=== PATIENT | male | born 1990 | race Caucasian/White ===

== ENCOUNTER 2017-12-15 12:29 | Emergency (ER) | payer MEDICAID, OTHER ==
[2017-12-15 12:48] VITALS: BMI 20.3
[2017-12-15 12:49] VITALS: TEMP 98.7
[2017-12-15] MEDS ORDERED: Naproxen 550 mg Tab PO STA (13:26)
--- NOTE | 2017-12-15 13:30 | C.PDOC ---
History Of Present Illness 27 year old male presents to the ED complaining of lump to the anterior right side of his neck. Patient states the lump sometimes is bigger than other days. Denies any pain. He reports he was treated for a tooth infection a year ago in [place] and since then the lump has been there. Patient complains of headache but denies any vision changes, dizziness, or any trauma/injuries. Time Seen by Provider: 12/15/17 12:55 Chief Complaint (Nursing): Headache History Per: Patient History/Exam Limitations: no limitations Onset/Duration Of Symptoms: Days Current Symptoms Are (Timing): Better Past Medical History Reviewed: Historical Data, Nursing Documentation, Vital Signs Vital Signs: Last Vital Signs Temp 98.7 F 12/15/17 12:48 Pulse 97 H 12/15/17 12:48 Resp 18 12/15/17 12:48 BP 121/81 12/15/17 12:48 Pulse Ox 100 12/15/17 12:48 - Medical History PMH: No Chronic Diseases Surgical History: No Surg Hx Family History: States: No Known Family Hx - Social History Hx Alcohol Use: Yes Hx Substance Use: Yes - Immunization History Hx Tetanus Toxoid Vaccination: No Hx Influenza Vaccination: No Hx Pneumococcal Vaccination: No Review Of Systems Except As Marked, All Systems Reviewed And Found Negative. Constitutional: Negative for: Fever Gastrointestinal: Negative for: Nausea, Vomiting, Diarrhea Physical Exam - Physical Exam Appears: Non-toxic Skin: Warm, Dry Head: Normacephalic Eye(s): bilateral: Normal Inspection Ear(s): Bilateral: Normal Nose: Normal Oral Mucosa: Moist Neck: Normal ROM Lymphatic: Adenopathy ((+) freely movable lymph node to the anterior right neck ) Extremity: Normal ROM Extremity: Bilateral: Atraumatic Neurological/Psych: Oriented x3, Normal Speech Gait: Steady ED Course And Treatment O2 Sat by Pulse Oximetry: 100 (RA) Pulse Ox Interpretation: Normal Disposition - Disposition Forms: [employer] ([place] Islander) - 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 - Scribe Statement The provider has reviewed the documentation as recorded by the Scribe Chhaya Soto All medical record entries made by the Scribe were at my direction and personally dictated by me. I have reviewed the chart and agree that the record accurately reflects my personal performance of the history, physical exam, medical decision making, and the department course for this patient. I have also personally directed, reviewed, and agree with the discharge instructions and disposition.
[2017-12-15] MEDS ORDERED: Naproxen 550 mg Tab PO ONE (13:36)
--- NOTE | 2017-12-15 13:43 | C.PDOC ---
Addendum entered and electronically signed by Abigail Mancini PA 12/15/17 21:29: Addendum Addendum: Patient with poor dentition and cracked teeth, (+) caries. May have trace dental infection and will treat with antibiotics. Original Note: History Of Present Illness 27 year old male presents to the ED complaining of lump to the anterior right side of his neck. Patient states the lump sometimes is bigger than other days. Denies any pain. He reports he was treated for a tooth infection a year ago in [place] and since then the lump has been there. Patient complains of headache but denies any vision changes, dizziness, or any trauma/injuries. Time Seen by Provider: 12/15/17 12:55 Chief Complaint (Nursing): Headache History Per: Patient History/Exam Limitations: no limitations Onset/Duration Of Symptoms: Days Current Symptoms Are (Timing): Gone Past Medical History Vital Signs: Last Vital Signs Temp 98.7 F 12/15/17 12:48 Pulse 97 H 12/15/17 12:48 Resp 18 12/15/17 12:48 BP 121/81 12/15/17 12:48 Pulse Ox 100 12/15/17 13:31 - Medical History PMH: No Chronic Diseases Surgical History: No Surg Hx Family History: States: No Known Family Hx - Social History Hx Alcohol Use: Yes Hx Substance Use: Yes - Immunization History Hx Tetanus Toxoid Vaccination: No Hx Influenza Vaccination: No Hx Pneumococcal Vaccination: No Review Of Systems Eyes: Negative for: Vision Change Gastrointestinal: Negative for: Nausea, Vomiting, Diarrhea Neurological: Positive for: Headache. Negative for: Dizziness Physical Exam - Physical Exam Appears: Non-toxic Skin: Warm, Dry Head: Normacephalic Eye(s): bilateral: Normal Inspection Ear(s): Bilateral: Normal Nose: Normal Oral Mucosa: Moist Neck: Normal ROM Lymphatic: Adenopathy ((+) freely movable lymph node to the anterior right neck ) Chest: Symmetrical Extremity: Normal ROM Extremity: Bilateral: Atraumatic Neurological/Psych: Oriented x3, Normal Speech Gait: Steady ED Course And Treatment O2 Sat by Pulse Oximetry: 100 (RA) Pulse Ox Interpretation: Normal Medical Decision Making Medical Decision Making: Orders: - Tylenol 650 mg PO - Naproxen 550mg PO On reassessment, patient reports feeling better. Patient instructed to follow up with your primary medical doctor or clinic for further evaluation. Take medications as prescribed. Return to the emergency department at any time if symptoms persist or worsen. Disposition - Disposition Referrals: at [facility] [Outside] Disposition: HOME/ ROUTINE Disposition Time: 13:40 Condition: STABLE Additional Instructions: Follow up with the medical doctor/clinic within 1-2 days. Return if worsened. 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 - Scribe Statement The provider has reviewed the documentation as recorded by the Scribe Chhaya Soto All medical record entries made by the Marcy were at my direction and personally dictated by me. I have reviewed the chart and agree that the record accurately reflects my personal performance of the history, physical exam, medical decision making, and the department course for this patient. I have also personally directed, reviewed, and agree with the discharge instructions and disposition.
[2017-12-15 14:06] VITALS: BP 126/69; PULSE 75; RESP 17; O2SAT 98
== END 2017-12-15 14:06 | disposition home or self-care (01) ==
LOC: C.ER 12:29
DX: R51 Headache (principal); R59.1 Generalized enlarged lymph nodes

== ENCOUNTER 2018-06-03 11:52 | Emergency (ER) | payer MEDICAID, OTHER ==
[2018-06-03 11:52] VITALS: BMI 20.3
[2018-06-03] MEDS ORDERED: Mag&Al/Simet/Diphen/Lido 237 ML KIT PO ONE (12:30)
--- NOTE | 2018-06-03 13:11 | C.PDOC ---
History Of Present Illness 28 year old male who is otherwise well, presents to the ED for evaluation of right upper molar pain. Patient states the tooth has been broken for months, but he has not been able to f/u with a dentist. He presents to the ED for evaluation because the pain has worsened over the past 2 days. Patient has been taking Tylenol/Motrin without relief. He denies fever, chills, or decreased PO intake. Time Seen by Provider: 06/03/18 13:04 Chief Complaint (Nursing): Dental Pain History Per: Patient History/Exam Limitations: no limitations Onset/Duration Of Symptoms: Days Current Symptoms Are (Timing): Worse Quality: Positive for: "Pain" Past Medical History Reviewed: Historical Data, Nursing Documentation, Vital Signs - Medical History PMH: No Chronic Diseases Surgical History: No Surg Hx Family History: States: Unknown Family Hx - Social History Hx Alcohol Use: Yes Hx Substance Use: Yes - Immunization History Hx Tetanus Toxoid Vaccination: No Hx Influenza Vaccination: No Hx Pneumococcal Vaccination: No Review Of Systems Constitutional: Negative for: Fever, Chills ENT: Positive for: Mouth Pain (right upper molar ) Physical Exam - Physical Exam Appears: Non-toxic, No Acute Distress Skin: Normal Color, Warm, Dry Head: Atraumatic, Normacephalic Oral Mucosa: Moist Teeth: No Normal Dentition (poor ), Other (2nd right upper molar is broken) Gingiva: Normal Appearing, No Erythema, No Ulceration, No Swelling, No Tender, No Bleeding, No Abscess Throat: Normal, No Erythema, No Exudate Neck: Supple Neurological/Psych: Normal Speech, Normal Cognition ED Course And Treatment O2 Sat by Pulse Oximetry: 98 (on RA ) Pulse Ox Interpretation: Normal Medical Decision Making Medical Decision Making: Motrin PO, Tylenol PO and Magic mouth wash given. Patient is resting comfortably, and is in no acute distress. Patient was instructed to follow up with dentist in 1-2 days for further evaluation. Disposition Counseled Patient/Family Regarding: Diagnosis, Need For Followup, Rx Given - Disposition Disposition: HOME/ ROUTINE Disposition Time: 13:05 Condition: STABLE Prescriptions: Ibuprofen [Motrin] 600 mg PO TID #24 tab Mag&Al/Simet/Diphen/Lido [First Magic Mouthwash] 5 ml MM TID #1 kit Penicillin VK [Penicillin VK Tab] 500 mg PO QID #40 tab Instructions: Dental Pain (DC) Forms: [facility] (Hungarian), General Discharge Instructions - POA Present On Arrival: None - Clinical Impression Clinical Impression: Dental caries - Scribe Statement The provider has reviewed the documentation as recorded by the Scribe (Sonia Spears) Provider Attestation: All medical record entries made by the Scribe were at my direction and personally dictated by me. I have reviewed the chart and agree that the record accurately reflects my personal performance of the history, physical exam, medical decision making, and the department course for this patient. I have also personally directed, reviewed, and agree with the discharge instructions and disposition.
[2018-06-03 16:40] VITALS: BP 111/74; PULSE 64; RESP 18; TEMP 98.2; O2SAT 98
== END 2018-06-03 15:45 | disposition home or self-care (01) ==
LOC: C.ER 11:52
DX: K02.9 Dental caries, unspecified (principal)